=== PATIENT | male | born 1985 | race Asian ===

== ENCOUNTER 2022-11-23 09:30 | Emergency (ER) | payer MEDICAID ==
[~2022-11-23] VITALS: Ht 157.5 cm; Wt 72.7 kg
[2022-11-23 09:34] VITALS: BP 109/58
--- NOTE | 2022-11-23 09:55 | NUR ---
Patient arrived to his ER bed handcuffed, [employer] officers at bedside. Radial pulses palpable, cap refill good. Pt has small abrasion below his left knee
[2022-11-23 10:09] LABS: BASOPHILS # (AUTO) 0.1 X10'3 (0-0.2); BASOPHILS % (AUTO) 0.7 % (0-1); EOSINOPHILS # (AUTO) 0.1 X10'3 (0-0.9); EOSINOPHILS % (AUTO) 0.9 % (0-6); HEMOGLOBIN 14.8 g/dl (14.0-17.9); LYMPHOCYTES % (AUTO) 26.1 % (21-51); MEAN CORPUSCULAR HEMOGLOBIN 28.7 PG (27.0-31.0); MEAN CORPUSCULAR HGB CONC 31.5 g/dL (33.0-36.5); MEAN PLATELET VOLUME 7.8 FL (7.4-10.4); MONOCYTES # (AUTO) 0.8 X10'3 (0-0.9); MONOCYTES % (AUTO) 6.6 % (2-12); NEUTROPHILS # (AUTO) 7.5 X10'3 (1.8-7.7); NEUTROPHILS % (AUTO) 65.7 % (42-75); PLATELET COUNT 264 X10'3 (140-440); RED BLOOD COUNT 5.17 X10'6 (4.70-6.10); RED CELL DISTRIBUTION WIDTH 13.7 % (11.5-14.5); WHITE BLOOD COUNT 11.4 X10'3 (4.5-11.0)
[2022-11-23 10:18] LABS: ALANINE AMINOTRANSFERASE 25 U/L (12-78); ALBUMIN 3.9 G/DL (3.4-5.0); ALBUMIN/GLOBULIN RATIO 1.1 (1.1-1.5); ALKALINE PHOSPHATASE 90 IU/L (46-116); ANION GAP 28 (8-16); ASPARTATE AMINO TRANSFERASE 27 U/L (10-37); BILIRUBIN,TOTAL 0.6 MG/DL (0.1-1.0); BLOOD UREA NITROGEN 15 MG/DL (7-18); BUN/CREATININE RATIO 10.2 (10.0-20.0); CALCIUM 8.9 MG/DL (8.5-10.1); CHLORIDE 103 MMOL/L (99-107); CREATINE KINASE 322 U/L (39-308); CREATININE 1.47 MG/DL (0.60-1.10); ETHANOL < 0.010 GM/DL (0.0-0.010); GLUCOSE 173 MG/DL (70-104); SODIUM 142 MMOL/L (135-145); TOTAL PROTEIN 7.5 G/DL (6.4-8.2); eGFR 54 ML/MIN
[2022-11-23 10:20] LABS: POTASSIUM 4.1 MMOL/L (3.5-5.1)
[2022-11-23 10:21] LABS: TOTAL CARBON DIOXIDE 11.2 MMOL/L (24-32)
[2022-11-23] MEDS ORDERED: normal saline 1000ML IV soln IVB ONE (10:25)
== END 2022-11-23 11:55 ==
LOC: ER 09:30
DX: M79.604 Pain in right leg (principal); E86.0 Dehydration; N28.9 Disorder of kidney and ureter, unspecified; V87.7XXA Person injured in collision between other specified motor vehicles (traffic), initial encounter
CPT/HCPCS: 36415; 73590; 73610; 80053; 80320; 82550; 85025; 99284; J7030